=== PATIENT | female | born 1945 | race Caucasian/White ===

== ENCOUNTER 2017-04-16 18:24 | Emergency (ER) | payer MEDICARE ==
[~2017-04-16] VITALS: Ht 160 cm; Wt 70.3 kg
[~2017-04-16 18:24] MED LIST: ACYC-1 PO; COZA50TA PO; CYCL-36 PO; GABA300C3 PO; OMNI1SUS LEFT EYE; TIMO0.5S29 LEFT EYE; TRAZ100T4 PO; ZOCO40TA PO
[2017-04-16 18:27] VITALS: BP 171/105; PULSE 98; RESP 18; TEMP 98.1; O2SAT 99
[2017-04-16] MEDS ORDERED: PRED1SUS LEFT EYE (18:50)
[2017-04-16] MEDS ORDERED: SIMV40TA PO (18:50)
[2017-04-16] MEDS ORDERED: LOSA50TA PO (18:50)
[2017-04-16] MEDS ORDERED: ACYC-101 PO (18:50)
[2017-04-16] MEDS ORDERED: TRAZ100T4 PO (18:50)
[2017-04-16] MEDS ORDERED: GABA600T PO (18:50)
--- NOTE | 2017-04-16 19:22 | PD ---
HPI Chief Complaint: Cold / Flu Symptoms Time Seen by Provider: 19:19 Travel History International Travel<30 days: Yes Contact w/Intl Traveler<30days: Yes Name of Country Traveled to: [place] Traveled to known affect area: No History of Present Illness HPI The patient is a 71-year-old female that complains of cough for about 2-1/2 weeks. The cough is productive of green sputum. She denies any fever. She has wheezing but is not particularly short of breath. On she was given prednisone course at [facility] but this did not help. She has not had an x-ray. She is not on any antibiotics. PFSH Past Medical History Autoimmune Disease: No Anxiety: Yes Depression: Yes (20 years ) Heart Rhythm Problems: No Cancer: No Cardiovascular Problems: No High Cholesterol: Yes Chest Pain: No Congestive Heart Failure: No Diabetes: No Diminished Hearing: No Endocrine: No GERD: No Genitourinary: No Hepatitis: No Hiatal Hernia: No Hypertension: Yes Immune Disorder: No Medical other: Yes (HIGH CHOLESTEROL) Musculoskeletal: Yes (NECK ) Neurologic: Yes (LEFT ARM PAIN, NUMBNESS/TINGLING) Psychiatric: Yes (ANXIETY, DEPRESSION) Reproductive: Yes (HYSTERECTOMY) Respiratory: No Immunizations Current: Yes Thyroid Disease: No Ulcer: No Tetanus Vaccination: Unknown Influenza Vaccination: Yes ?: Not Past Surgical History Abdominal Surgery: Yes (LAP [place]) AICD: No Cardiac Surgery: No Cholecystectomy: Yes Ear Surgery: No Eye Surgery: No Genitourinary Surgery: Yes (Bladder lift 1989) Gynecologic Surgery: Yes (Total Hysterectomy 1984) Hysterectomy: Yes Joint Replacement: No Neurologic Surgery: Yes (NECK FUSION) Oral Surgery: Yes (Tonsillectomy ) Pacemaker: No Thoracic Surgery: No Social History Alcohol Use: Yes Tobacco Use: No Substance Use: No Allergies-Medications (Allergen,Severity, Reaction): Coded Allergies: Codeine (Verified Allergy, Severe, ITCHY, 04/16/17) Uncoded Allergies: LIVIER (Adverse Reaction, Intermediate, VERTIGO, DIAPHORESIS, 12/04/14) PT DENIES Reported Meds & Prescriptions Reported Meds & Active Scripts Active Zithromax (Azithromycin) 500 Mg Tab 500 Mg PO DAILY 5 Days Tussionex Pennkinetic Ext 12 HR Liq (Hydrocodone-Chlorpheniramine 12 HR Liq) 10- 8 Mg/5 Ml Susp 5 Ml PO Q12H PRN Reported Zovirax (Acyclovir) 800 Mg Tab 800 Mg PO DAILY Simvastatin 40 Mg Tab 40 Mg PO HS Trazodone (Trazodone HCl) 100 Mg Tab 100 Mg PO HS Losartan (Losartan Potassium) 50 Mg Tab 50 Mg PO BID Gabapentin 600 Mg Tab 600 Mg PO BID Pred Forte Opth 1% (Prednisolone Acetate Opth 1%) 1% Susp 1 Drop LEFT EYE HS Review of Systems Except as stated in HPI: all other systems reviewed are Neg Physical Exam Narrative GENERAL: The patient is alert, oriented 3 in no respirator distress. She does have a persistent cough but in the emergency department it is mostly nonproductive. Her vital signs show blood pressure 171/105 and heart rate of 98 but otherwise normal. SKIN: Focused skin assessment warm/dry. HEAD: Atraumatic. Normocephalic. EYES: Pupils equal and round. No scleral icterus. No injection or drainage. ENT: No nasal bleeding or discharge. Mucous membranes pink and moist. NECK: Trachea midline. No JVD. CARDIOVASCULAR: Regular rate and rhythm. No murmur appreciated. RESPIRATORY: No accessory muscle use. Clear to auscultation except for a few widely scattered wheezes. Breath sounds equal bilaterally. GASTROINTESTINAL: Abdomen soft, non-tender, nondistended. Hepatic and splenic margins not palpable. MUSCULOSKELETAL: No obvious deformities. No clubbing. No cyanosis. No edema. NEUROLOGICAL: Awake and alert. No obvious cranial nerve deficits. Motor grossly within normal limits. Normal speech. PSYCHIATRIC: Appropriate mood and affect; insight and judgment normal. Data Data Last Documented VS Vital Signs Date Time Temp Pulse Resp B/P Pulse Ox O2 Delivery O2 Flow Rate FiO2 04/16/17 20:45 95 22 176/81 99 04/16/17 19:52 98.8 Room Air Orders Chest, Pa & Lat (04/16/17 19:19) Hydrocodone-Homatropine Liq (Hycodan Liq (04/16/17 20:15) Albuterol-Ipratropium Neb (Duoneb Neb) (04/16/17 20:15) Diphenhydramine (Benadryl) (04/16/17 20:45) MDM Medical Decision Making Medical Screen Exam Complete: Yes Emergency Medical Condition: Yes Medical Record Reviewed: Yes Interpretation(s) The chest x-ray shows no acute change. Differential Diagnosis Bronchitis, pneumonia, viral syndrome Narrative Course The patient has bronchitis. She is getting frustrated in that it has been going on for 2-1/2 weeks. I discussed the patient with Dr. Kraus, he will see the patient on Sunday. We will give the patient Zithromax and hydrocodone cough syrup. Diagnosis Primary Impression: Bronchitis Additional Instructions: Drink plenty of liquids to stay well-hydrated. Do not drink alcohol or drive on the cough syrup, it can make you sleepy. The antibiotic is one tablet daily for 5 days. Follow-up with Dr. Kraus on Sunday. Med/Other Pt SpecificInfo: Prescription(s) given Scripts Azithromycin (Zithromax)500 Mg Sex654 Mg PO DAILY 5 Days Ref 0 Prov:Lang Dejesus MD 04/16/17 Hydrocodone-Chlorpheniramine 12 HR Liq (Tussionex Pennkinetic Ext 12 HR Liq)10- 8 Mg/5 Ml Susp5 Ml PO Q12H PRN (COUGH AND/OR COLD SYMPTOMS) #60 ML Ref 0 Prov:Lang Dejesus MD 04/16/17 Disposition: 01 DISCHARGE HOME Condition: Stable Lang Dejesus MD April 16, 2017 19:22
[2017-04-16] MEDS ORDERED: ZITH500T PO (19:29)
[2017-04-16] MEDS ORDERED: TUSSSUS2 PO (19:29)
[2017-04-16 19:52] VITALS: BP_SYST 144; BP_SYST 166; BP_DIAS 62; BP_DIAS 94; PULSE 65; PULSE 81; RESP 20; RESP 24; TEMP 98.8; O2SAT 95; O2SAT 99
[2017-04-16] MEDS ORDERED: HYDROcodone 5 MG/HOMATROPINE 1.5 MG SYRUP 5 ML CUP PO ONE (20:15)
[2017-04-16] MEDS: RESP: ALBUTEROL 2.5 MG/IPRATROPIUM 0.5 MG NEB (SCH) INH (20:24)
--- NOTE | 2017-04-16 20:31 | RADHPO ---
EXAM DATE/TIME: 04/16/2017 19:33 [facility] COMPARISON: No previous studies available for comparison. INDICATIONS : Cough MEDICAL HISTORY : None. SURGICAL HISTORY : None. ENCOUNTER: Initial ACUITY: 2 weeks PAIN SCORE: 3/10 LOCATION: Bilateral chest FINDINGS: PA and lateral views of the chest demonstrate the lungs to be symmetrically aerated without evidence of mass, infiltrate or effusion. The cardiomediastinal contours are unremarkable except tortuous aor ta. Osseous structures are intact. CONCLUSION: 1. No acute findings. Tortuous aorta. Cheo Ott MD on April 16, 2017 at 20:29 Board Certified Radiologist. This report was verified electronically.
[2017-04-16 20:45] VITALS: BP 176/81; PULSE 95; RESP 22; O2SAT 99
[2017-04-16] MEDS ORDERED: diphenhydrAMINE HCL 25 MG CAP PO ONE (20:45)
[2017-04-16 21:30] VITALS: BP 162/84
== END 2017-04-16 21:31 | disposition home or self-care (01) ==
LOC: PHED 18:24
DX: J40 Bronchitis, not specified as acute or chronic (principal); E78.00 Pure hypercholesterolemia, unspecified; I10 Essential (primary) hypertension; F41.8 Other specified anxiety disorders
CPT/HCPCS: 71020; 94640; 94664; 99284